=== PATIENT | male | born 1970 | race Caucasian/White ===

== ENCOUNTER 2016-10-27 18:33 | Emergency (ER) | payer OTHER ==
--- NOTE | ~2016-10-27 | CT4 ---
[facility] A Service of [facility] RADIOLOGY TEXT RESULTS PATIENT: SENDY FERNÁNDEZ LOCATION: [facility] : 70 UNIT #: [id number] AGE: [address]: Felisha Shrestha SEX: M ORDER DR: [id number] [facility] [address] [place], [place] [address] [id number] E MR#: [id number] Acc #: [id number] NAME: SENDY FERNÁNDEZ : 1970 SEX: M STUDY DATE/TIME: 10/27/2016 19:06 UNIT: [facility] ROOM: STUDY DESCRIPTION: CT Abd and Pelv Wo Cont Attending Physician: Felisha Shrestha P.A.-C. Ordering Physician: Felisha Shrestha P.A.-C. Primary Care Physician: Rekha Allen A.P.R.N. MEDICAL IMAGING REPORT This report is preliminary unless electronic signature is present EXAM CT abdomen and pelvis without contrast HISTORY 46-year-old male blood in urine no pain and hematuria started this morning. History of kidney stones. COMPARISON STUDIES There is a comparison CT abdomen and pelvis 12/11/2009. TECHNIQUE Axial images form through the abdomen and pelvis and without contrast. Multiplanar reconstructed images reviewed at a workstation. This CT exam was performed with one or more of the following radiation dose reduction techniques: automatic exposure control, adjustment of mA and/or kV according to patient size, and iterative reconstruction. FINDINGS ABDOMEN: The lung bases unremarkable. The liver, spleen, gallbladder, pancreas and adrenal glands unremarkable. There is a 5 mm proximal left ureteral stone with only minimal hydronephrosis. Visualized GI tract unremarkable. PELVIS: Bladder and prostate appear normal. Osseous structures unremarkable. There is a round low-attenuation lesion in the upper anterior abdominal wall measuring 3.6 cm, most likely represents an epidermal inclusion cyst. IMPRESSION 1. 5 mm proximal left ureteral stone with only minimal hydronephrosis. 2. 3.6 cm mass lesion anterior abdominal wall, probably represents an epidermal inclusion cyst. Correlate with clinical exam. [facility] A Service of [facility] RADIOLOGY TEXT RESULTS PATIENT: SENDY FERNÁNDEZ LOCATION: [facility] : 70 UNIT #: [id number] AGE: [address]: Felisha Shrestha SEX: M ORDER DR: Dictated by... Whit Walls M.D. THIS IS AN ELECTRONICALLY VERIFIED REPORT Whit Walls M.D. at 10/28/2016 2:03 PM SHAGUFTA/lori TD: 10/27/2016 21:59 JOB #: [id number] MEDICAL IMAGING REPORT Page 1 of 1 COPY
[2016-10-27 18:24] LABS: URINE SOURCE CLEAN CATCH
[2016-10-27 18:38] LABS: URINE APPEARANCE CLEAR; URINE BILIRUBIN NEG (NEG); URINE BLOOD 3+ (NEG); URINE COLOR ORANGE; URINE GLUCOSE NEG (NEG); URINE KETONE NEG (NEG); URINE LEUKOCYTE ESTERASE NEG (NEG); URINE NITRATE NEG (NEG); URINE PH 5.5 (5-8); URINE PROTEIN TRACE (NEG); URINE SPECIFIC GRAVITY 1.013 (1.003-1.035); URINE UROBILINOGEN 0.2 MG/DL (NEG)
[2016-10-27 18:41] LABS: URBCS1 AUWI INNUM /[HPF] (0-2); URINE BACTERIA AUWI NEG (NEGATIVE); URINE SQUAMOUS EPITHELIAL CELL NONE SEEN /[HPF]
[2016-10-27 18:42] LABS: CULTURE INDICATED? NO
[2016-10-27 19:19] LABS: BASOPHIL% 0.4 % (0-2.5); EOSINOPHIL% 0.1 % (0.0-7.0); HEMATOCRIT 48.6 % (38.0-50.0); LYMPHOCYTE# 1.5 X10e3 (1.0-3.5); LYMPHOCYTE% 16.7 % (17.0-45.0); MEAN CELL VOLUME 87.6 FL (83-96); MEAN CORPUSCULAR HEMOGLOBIN 28.9 PG (28-34); MEAN PLATELET VOLUME 7.3 FL (6.5-11.5); MONOCYTE# 0.4 X10e3 (0-1.0); MONOCYTE% 5.1 % (3.0-12.0); NEUTROPHIL# 6.8 X10e3 (1.5-7.1); NEUTROPHIL% 77.7 % (40-75); PLATELET COUNT 229 X10e3 (140-420); RED BLOOD COUNT 5.55 X10e (3.90-5.60); RED CELL DISTRIBUTION WIDTH 12.5 % (11.0-15.5); WHITE BLOOD COUNT 8.8 X10e3 (4.0-10.5)
[2016-10-27 19:20] LABS: DIFF IND NO
[2016-10-27 19:42] LABS: BUN/CREATININE RATIO 12.72; CALCIUM SERUM 9.5 mg/dL (8.4-10.2); CREATININE SERUM 1.1 mg/dL (0.6-1.4); GLOM FILT RATE Estimated 80.1 mL/min (>60); POTASSIUM 3.8 mmol/L (3.5-5.1)
== END 2016-10-27 19:50 | disposition home or self-care (01) ==
LOC: CFTX 18:33
PROVIDERS: Physician Assistant
DX: N13.2 Hydronephrosis with renal and ureteral calculous obstruction (principal); F41.9 Anxiety disorder, unspecified; G47.00 Insomnia, unspecified; Z98.890 Other specified postprocedural states; Z87.442 Personal history of urinary calculi
CPT/HCPCS: 36415; 74176; 80048; 81003; 85025; 99284